=== PATIENT | male | born 1970 | race Caucasian/White ===

== ENCOUNTER 2016-10-21 09:19 | Emergency (ER) | payer OTHER ==
[~2016-10-21] VITALS: Ht 180.3 cm; Wt 119.7 kg
[2016-10-21 09:22] VITALS: PULSE 88; TEMP 36.8; O2SAT 99; Ht 180.3 cm; Wt 119.7 kg
--- NOTE | 2016-10-21 09:35 | EMERGENCY ROOM VISIT NOTE ---
ED Visit Note First contact with patient: 09:35 Patient evaluated with resident. Very superficial leceration of skin and nailbed. Pt offered removal of affected part of nail and declined. Keflex x 3 days, Adacel IM given. Patient understands to keep wound clean and to return to ED for any worsening or worrisome symptoms.
[2016-10-21] MEDS ORDERED: CEPH500C PO (09:44)
[2016-10-21] MEDS ORDERED: DIPHTHERIA/TETANUS/PERTUSSIS 0.5 ML SYR/VIAL IM. ONE ×2 (09:45)
[2016-10-21 09:50] VITALS: BP 146/106
--- NOTE | 2016-10-21 10:06 | EMERGENCY ROOM VISIT NOTE ---
History First contact with patient: 09:35 Chief Complaint: LACERATION/CUT (SUT/DERMABOND) Stated Complaint: CUT LEFT INDEX FINGER - Nursing Triage Summary: laceration to left index finger with a jog saw. work related. unknown tet status History of Present Illness The patient is a 45 year old male who presents to the Emergency Room with complaints of left ring finger laceration. He was using a jig saw today and it slipped and caught the tip of left index finger. There is a small fragment of nail with a small laceration at the tip of the finger. He had a small amount of bleeding initially which has resolved. Otherwise, he denies pain, changes in sensation or weakness to the hand or the finger. He is here because he was told to come per his employer. He is otherwise well without any other symptoms. Review of Systems A 10 point review of systems was negative unless stated above. Past Medical/Surgical History No current medical or surgical history Social History Smoking Status: Never Smoker Smokeless Tobacco Use: No Alcohol Use: none Drug Use: none Marital Status: single Occupation Status: employed ([employer]) Current/Historical Medications Scheduled Cephalexin Monohydrate (Keflex), 1 CAP PO TID Ergocalciferol (Vitamin D 93540 Unit), 1 CAP PO WK Omeprazole (Prilosec), 20 MG PO DAILY Testosterone (Androgel), 1 PKT TOP DAILY Allergies Coded Allergies: No Known Allergies (Unverified , 10/21/16) Physical Exam Vital Signs Date Time Temp Pulse Resp B/P Pulse Ox O2 Delivery O2 Flow Rate FiO2 10/21/16 09:50 146/106 10/21/16 09:22 36.8 88 18 156/125 99 Room Air Pain Rating (0-10): 2.0 Physical Exam Constitutional: Vital signs as above were reviewed. Eyes: Pupils equal, round, and reactive to light. Extraocular muscles are intact. No proptosis. No photophobia. ENT: Mucous membranes are moist. Oropharynx is clear. No sinus tenderness. Cardiovascular: Heart with a regular rate and rhythm. Pulses are palpable and symmetric in all 4 extremities. No pedal edema appreciated. Respiratory: Lungs clear to auscultation bilaterally. No wheezes, rales, or rhonchi appreciated. No accessory muscle use. No retractions. No increased work of breathing. GI: Abdomen soft, nontender, nondistended. Normal active bowel sounds. No abdominal hernias appreciated. No rebound. No guarding. : No CVA tenderness appreciated. Musculoskeletal: No midline cervical or vertebral tenderness. No gross deformities. No bony tenderness. No calf swelling or tenderness. Integumentary: Warm, dry, no rashes appreciated. 2 mm superficial laceration, though tip of distal phalanx of the right index finger; no bleeding no discharge; no generalized swelling or stiffness Sensation intact to right hand Muscle strength 5/5 in both hands Neurological: Patient awake, alert, and oriented x 3. Cranial nerves two through 12 grossly intact. Lymph: No cervical lymphadenopathy appreciated. Medical Decision & Procedures Medications Administered Medications (Trade) Dose Ordered Sig/Nazario Route Start Time Stop Time Status Last Admin Dose Admin Diphtheria/ Pertussis/Tetanus Vacc (Adacel Inj) 0.5 ml ONCE ONCE IM. 10/21/16 09:45 10/21/16 09:46 DC 10/21/16 09:46 0.5 ML ED Course 09:25 - Patients seen and assessed 09:45 - Reviewed case with Dr. Martinez Patient seen again; reviewed laceration; offered to place single suture or discharge with wound care instructions only Patient decision for discharge and will care for wound at home Adacel boost given Home prescription for Keflex 500 mg PO TID x 3 days 09:50 - Patient discharged in stable condition Medical Decision Patient presents with small finger laceration. Laceration appears simple without bleeding or overt evidence of infection. He was offered laceration repair with single suture. However, the laceration is so small that wound care recommendations are appropriate in this setting as well. Patient was offered both options and chose to be discharged and will keep wound clean and covered at home. 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 Return to work form signed without restrictions; patient discharged in stable condition. Patient advised on seeing PCP if wound begins to become more tender , erythematous it become purulent. Impression Primary Impression: Laceration of right index finger Departure Information Dispostion Home / Self-Care Condition GOOD Prescriptions Cephalexin Monohydrate (Keflex) 500 Mg Cap 1 CAP PO TID for 3 Days, #9 CAP Prov: Zachary Verduzco MD 10/21/16 Referrals Kayla Galarza M.D. (PCP) Forms HOME CARE DOCUMENTATION FORM, IMPORTANT VISIT INFORMATION Patient Instructions My [facility], ED Laceration All Additional Instructions You lacerated the nailbed of your index finger in your left hand. The laceration is small and if kept clean and covered will likely heal on its own. If you noticed worsening pain, changes in sensation to your finger, finger swellintg or fevers, please see your regular doctor. We will give you 3 days of antibiotics to cover for infection and we will give you a tetanus booster. It was a pleasure to be involved in your care.
[2016-10-21] MEDS ORDERED: PRLSR20 PO (15:05)
[2016-10-21] MEDS ORDERED: ERGO500037 PO (15:06)
[2016-10-21] MEDS ORDERED: ANDG TOP (15:06)
== END 2016-10-21 09:51 | disposition home or self-care (01) ==
LOC: C.EDB 09:20 → C.EDC 09:51
DX: S61.311A Laceration without foreign body of left index finger with damage to nail, initial encounter (principal); W31.2XXA Contact with powered woodworking and forming machines, initial encounter; Y99.0 Civilian activity done for income or pay; Z79.899 Other long term (current) drug therapy